=== PATIENT | male | born 1975 | race American Indian/Alaskan Native ===

== ENCOUNTER 2024-02-07 19:05 | Emergency (ER) | payer MEDICAID, OTHER | END 2024-02-07 19:22 | disposition left against medical advice (07) | LOC: ER 19:05 | DX: R10.9 Unspecified abdominal pain (principal); Z53.21 Procedure and treatment not carried out due to patient leaving prior to being seen by health care provider ==

== ENCOUNTER 2025-05-29 19:15 | Emergency (ER) | payer MEDICAID ==
[~2025-05-29] VITALS: Ht 167.6 cm; Wt 92.2 kg
--- NOTE | 2025-05-29 19:48 | ECG ---
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
[2025-05-29 20:05] LABS: Hematocrit 44.4 % (41.0-53.0); Hemoglobin 15.1 g/dL (13.5-17.5); Mean Corpuscular Hemoglobin 29.7 pg (28.0-32.0); Mean Corpuscular Volume 87.2 fL (80.0-100.0); Nucleated Red Blood Cells % 0.1 %
[2025-05-29 20:18] LABS: Chloride 102 mmol/L (98-107); Potassium 3.8 mmol/L (3.5-5.1); Sodium 142 mmol/L (136-145)
[2025-05-29 20:19] LABS: Anion Gap 9 (5-15); Calcium 9.2 mg/dL (8.7-10.4)
[2025-05-29 20:22] LABS: INR 0.96 (0.9-1.15); Partial Thromboplastin Time 27.5 SEC (24.5-34.5); Prothrombin Time 10.2 sec (9.3-11.8)
[2025-05-29 20:24] LABS: BUN/Creatinine Ratio 11.2 (10.0-20.0); Blood Urea Nitrogen 11 mg/dL (9-23); Lipase 29 U/L (12-53)
[2025-05-29 20:26] LABS: Carbon Dioxide 31 mmol/L (20-31); Glucose 132 mg/dL (74-106)
[2025-05-29] MEDS: IOHEXOL 350 MG/ML 100ML IJ ONE ×2 (21:01→21:25)
--- NOTE | 2025-05-29 21:25 | ED.PDOC ---
History of Present Illness HPI Comments 49-year-old male presents with complaint of chest pain. Significant history for PE s/p thrombectomy - on Eliquis, lower extremity DVT's, and liver cirrhosis. Patient endorses on sudden onset of tightening pain 10 minutes after eating dinner earlier this evening. He denies any shortness of breath, fever, cough, or further associated symptoms. Patient did not take any medications to manage pain prior to ED arrival. He did recently return from [place] after being found with a PE last month, now s/p thrombectomy and compliant with Eliquis. Current pain is reported to be different from pain he had with PE, characterized by the absence of shortness of breath. He denies any personal or family history of cardiac disease. Chief Complaint: Chest Pain Time Seen by MD: 19:30 Reviewed Notes: Nurses Notes, Medications, Allergies Allergies: Coded Allergies: NO KNOWN ALLERGIES (Unverified , 05/29/25) Information Source: Patient Mode of Arrival: Ambulatory Severity: Moderate Timing: Hours Duration: Since onset Prehospital treatment: None Past Medical History PAST MEDICAL HISTORY: Liver (History of previous hepatitis-C), PE Past Medical History (Other): History of lower extremity DVTs - on Eliquis Surgical History (Other): Right femoral thrombectomy Social History Smoker: Non-Smoker Alcohol: Denies ETOH Use Drugs: Denies Drug Use Lives In: Home All Other Systems: Reviewed and Negative (Comprehensive review of systems are negative unless otherwise stated in HPI) Physical Exam General Appearance: No Apparent Distress, Obese HEENT: Normal ENT Inspection, Pharynx Normal, TMs Normal Neck: Full Range of Motion, Non-Tender, Normal, Normal Inspection Respiratory: Chest Non-Tender, Lungs Clear, No Accessory Muscle Use, No Respiratory Distress, Normal Breath Sounds Cardiovascular: No Edema, No JVD, No Murmur, No Gallop, Normal Peripheral Pulses, Tachycardia, Other (Regular rhythm) Breast Exam: Deferred Gastrointestinal: No Organomegaly, Non Tender, No Pulsatile Mass, Normal Bowel Sounds, Soft Genitalia: Deferred Pelvic: Deferred Rectal: Deferred Extremities: No calf tenderness, Normal capillary refill, Normal inspection, Normal range of motion, Non-tender, No pedal edema Musculoskeletal : Apperance: Normal Neurologic: Alert, all source intelligence analyst II-XII nml as Tested, No Motor Deficits, Normal Affect, Normal Mood, No Sensory Deficits Cerebellar Function: Normal Reflexes: Normal Skin: Dry, Normal Color, Warm Lymphatic: No Adenopathy Was a procedure done? Was a procedure done?: No EKG EKG : Pulse Rate (adult): 104 [place]: Normal Cardiac Rhythm: ST Block: None Hypertrophy: None ST: Normal Differential Dx Considerations may include: OH, PE, ACS, URI, PNA, angina, anxiety, gastritis, GERD, costochondritis, viral, musculoskeletal pain, among others X-Ray, Labs, Meds, VS Vital Signs Date Time Temp Pulse Resp B/P (MAP) Pulse Ox O2 Delivery O2 Flow Rate FiO2 05/29/25 22:41 97.9 77 19 150/95 (113) 99 97.9 05/29/25 21:25 104 05/29/25 20:33 86 05/29/25 19:27 104 05/29/25 19:18 97.8 106 20 158/108 99 97.8 Lab Test 05/29/25 20:26 05/29/25 19:32 Range/Units Troponin I High Sensitivity < 3 L < 3 L </=54 ng/L White Blood Count 7.4 4.4-10.8 10^3/uL Red Blood Count 5.10 4.5-5.90 10^6/uL Hemoglobin 15.1 13.5-17.5 g/dL Hematocrit 44.4 41.0-53.0 % Mean Corpuscular Volume 87.2 80.0-100.0 fL Mean Corpuscular Hemoglobin 29.7 28.0-32.0 pg Mean Corpuscular Hemoglobin Concent 34.0 32.0-36.0 g/dL Red Cell Distribution Width 13.8 11.8-14.3 % Platelet Count 344 140-450 10^3/uL Mean Platelet Volume 7.4 6.9-10.8 fL Neutrophils (%) (Auto) 55.5 37.0-80.0 % Lymphocytes (%) (Auto) 31.5 10.0-50.0 % Monocytes (%) (Auto) 10.5 0.0-12.0 % Eosinophils (%) (Auto) 2.0 0.0-7.0 % Basophils (%) (Auto) 0.5 0.0-2.0 % Neutrophils # (Auto) 4.1 1.6-8.6 10 ^3/uL Lymphocytes # (Auto) 2.3 0.4-5.4 10 ^3/uL Monocytes # (Auto) 0.8 0-1.3 10 ^3/uL Eosinophils # (Auto) 0.2 0-0.8 10 ^3/uL Basophils # (Auto) 0 0-0.2 10 ^3/uL Nucleated Red Blood Cells 0.1 % Prothrombin Time 10.2 9.3-11.8 sec Prothrombin Time INR 0.96 0.9-1.15 Activated Partial Thromboplast Time 27.5 24.5-34.5 SEC Sodium Level 142 136-145 mmol/L Potassium Level 3.8 3.5-5.1 mmol/L Chloride Level 102 98-107 mmol/L Carbon Dioxide Level 31 20-31 mmol/L Anion Gap 9 5-15 Blood Urea Nitrogen 11 9-23 mg/dL Creatinine 0.98 0.700-1.30 mg/dL Glomerular Filtration Rate Calc 96 >90 mL/min BUN/Creatinine Ratio 11.2 10.0-20.0 Serum Glucose 132 H 74-106 mg/dL Calcium Level 9.2 8.7-10.4 mg/dL B-Type Natriuretic Peptide 9.26 0-100 pg/mL Lipase 29 12-53 U/L X-Ray, Labs, Meds, VS Comment Patient with history of PE, presents with chest pain. Patient tachycardic on arrival, however otherwise well-appearing EKG and troponin to evaluate for evidence of arrhythmia, ACS, AMI Lab work (CBC, BMP) to evaluate for evidence of severe anemia, electrolyte abnor mality including hypokalemia, hyperkalemia, hypernatremia, hyponatremia, hyperglycemia, hypoglycemia, etc. CT angio chest to evaluate for PE or dissection Re-evaluate Social determinant surveillance affecting care: Social determinants of health that will affect the patient's care: Poor health literacy (additional time provided an explanation) Poor access to outpatient care/followup (provided outpatient resources) Time of 1ST Reevaluation: 20:10 Reevaluation 1ST: Unchanged Patient Education/Counseling: Diagnosis, Treatment Family Education/Counseling: No Family Present SEPSIS Sepsis Screen Date sepsis recognized/suspect: May 29, 2025 Time Sepsis recognized/suspect: 1917 Recent Procedure: Yes (THROMBECTOMY) On Antibiotic Therapy: No Respiratory Rate >20: No Heart Rate >90: Yes Temp<36 C (96.8 F) or >38.3 C: No SBP <90 or MAP <65 mmHG: No New Acute Mental Status Change: No Is the patient on CPAP, BIPAP,: No Physician Orders Electrocardigram (05/29/25 19:32) Electrocardigram (05/29/25 20:32) Electrocardigram (05/29/25 22:32) Ct Angio Chest Contrast (05/29/25 19:35) Vital Signs Date Time Temp Pulse Resp B/P (MAP) Pulse Ox O2 Delivery O2 Flow Rate FiO2 05/29/25 22:41 97.9 77 19 150/95 (113) 99 97.9 05/29/25 21:25 104 05/29/25 20:33 86 05/29/25 19:27 104 05/29/25 19:18 97.8 106 20 158/108 99 97.8 Laboratory Tests Test 05/29/25 19:32 White Blood Count 7.4 10^3/uL (4.4-10.8) Departure 1 Departure Time of Disposition: 00:10 (On reassessment, patient's symptoms improved. Labs and imaging unremarkable besides small peripheral pulmonary emboli, likely from recent PE 1 month ago. Patient is compliant with Eliquis, so concern for medication failure at this time. Chest pain is now resolved, troponin negative, EKG nonischemic. Patient is stable for discharge with outpatient cardiology follow up. Given strict return precautions and PMD follow-up.) Impression: Primary Impression: Acute chest pain Additional Impression: Pulmonary emboli Qualified Codes: I27.82 - Chronic pulmonary embolism Disposition: HOME / SELF CARE / HOMELESS Condition: Stable Discharged With: Self Critical Care Note Critical Care Time?: No Stability Stability form required: No Heart Score Heart Score: Heart Score Response (Comments) Value History Highly Suspicious 2 EKG Normal 0 Age 45-64 1 Risk Factors >3 or Hx ASHD 2 Troponin Normal limit 0 Total 5 I personally scribed for MJ MARIEE MD ([email or web address]) on 05/29/25 at 21:25. Electronically submitted by Mario Dominguez ([email or web address]). I personally scribed for MJ MARIEE MD ([email or web address]) on 05/29/25 at 22:50. Electronically submitted by Mario Dominguez ([email or web address]). MJ MARIEE MD May 29, 2025 21:25
--- NOTE | 2025-05-29 23:09 | DVH ---
EXAM: CT CT ANGIO CHEST CONTRAST History: CP Comparison Study: None TECHNIQUE: A digital licensing court magistrate image was obtained. During the uneventful, intravenous administration of contrast material, multislice data acquisition was obtained through the chest. 3-D postprocessing is performed by technologist including MIP imaging Radiation Dose : CTDI vol 26.99 mGy, DLP 1003.96 mGy*cm. Findings: Evaluation is degraded by respiratory motion. Lungs: The lungs are clear. Pleura: Unremarkable Heart/Great vessels: Borderline cardiomegaly. No pericardial effusion. There are filling defects within subsegmental branches of the right lower lobe pulmonary artery and within the left lower lobe pulmonary artery there is no CT evidence of right heart strain. Aorta is unremarkable. Mediastinum: Unremarkable. Soft tissues/Bones: Unremarkable Upper abdomen: Hepatic cysts and additional too small to characterize hepatic lesions. Impression: 1. Small bilateral pulmonary emboli as detailed. No CT evidence of right heart strain. 2. Additional findings as detailed. Critical Result: Pumonary Emboli Findings discussed with MJ MARIEE at 05/29/2025 11:06 PM, and acknowledged receipt and understanding of the findings.
[2025-05-30] VITALS: PULSE 79
[2025-05-30 00:30] VITALS: BP 127/87; PULSE 79; RESP 14; TEMP 98; O2SAT 99
[2025-05-30] MEDS ORDERED: APIX5TAB PO (00:35)
--- NOTE | 2025-05-30 05:51 | ECG ---
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
== END 2025-05-30 00:45 | disposition home or self-care (01) ==
LOC: ER 19:15
DX: I26.99 Other pulmonary embolism without acute cor pulmonale (principal); Z86.19 Personal history of other infectious and parasitic diseases; Z86.718 Personal history of other venous thrombosis and embolism; Z98.890 Other specified postprocedural states
CPT/HCPCS: 36415; 71275; 80048; 83690; 83880; 84484; 85025; 85610; 85730; 93005; 99285; Q9967